=== PATIENT | female | born 1980 | race African-American/Black ===

== ENCOUNTER 2022-01-02 08:00 | Emergency (ER) | payer MEDICAID, OTHER ==
[~2022-01-02] VITALS: Ht 170.2 cm; Wt 86.2 kg
[2022-01-02 08:37] VITALS: BP 153/95
== END 2022-01-02 10:38 | disposition home or self-care (01) ==
LOC: ER 08:00
DX: S63.617A Unspecified sprain of left little finger, initial encounter (principal); W22.01XA Walked into wall, initial encounter; Y93.89 Activity, other specified; Y92.89 Other specified places as the place of occurrence of the external cause; Y99.8 Other external cause status
CPT/HCPCS: 29130; 73130